=== PATIENT | female | born 1990 | race Caucasian/White ===

== ENCOUNTER 2016-05-18 17:27 | Emergency (ER) | payer SELFPAY ==
[~2016-05-18] VITALS: Ht 157.5 cm; Wt 85.2 kg
--- OUTSIDE RECORDS SUMMARY | 2016-05-18 17:32 | XMS REPORT | Referral Summary ---
Author Author [facility] Organization [facility] Address Unknown Phone Unavailable Care Team Providers Care Blacktop Spreader Name Role Phone Florina Boyd Primary Care Physician [phone] Encounter [facility] [id number] Date(s): 09/10/14 - 09/10/14 [facility] [address] [place] [address] Discharge Diagnosis: Bronchitis Final: BRONCHITIS, NOT SPECIFIED ACUTE OR CHRONIC Discharge Disposition: 01-Home or Self Care Attending Physician: Rubén Dos Santos MD Admitting Physician: Rubén Dos Santos MD Vital Signs Most recent to 1 2 oldest [Reference Range]: Temperature Oral 37.2 degC [35.8-37.3 degC] (09/10/14 12:09 PM) Peripheral Pulse 92 bpm Rate [60-100 bpm] (09/10/14 2:05 PM) Heart Rate Monitored 78 bpm 86 bpm [60-100 bpm] (09/10/14 12:24 PM) (09/10/14 12:24 PM) Respiratory Rate 16 br/min [14-20 br/min] (09/10/14 2:05 PM) Blood Pressure 104/74 mmHg [90-140/60-90 mmHg] (09/10/14 2:05 PM) SpO2 96 % (09/10/14 2:05 PM) Problem List Condition Effective Dates Status Health Status Informant Neck pain(Confirmed) Active Obesity(Confirmed) Active patient Allergies, Adverse Reactions, Alerts No Known Medication Allergies Medications Apri 0.15 mg-0.03 mg oral tablet 1 tabs, Oral, Daily, # 84 tabs, 1 Refill(s), Pharmacy: [facility] [id number] Start Date: 05/06/14 Status: Ordered Ventolin HFA 90 mcg/inh inhalation aerosol 2 puffs, Inhalation, q4hr, as needed for wheezing, # 8 g, 1 Refill(s), Pharmacy : [facility] [id number], 2 puffs Inhalation q4hr,PRN:as needed for wheezing Start Date: 05/06/14 Status: Ordered Zithromax Z-Billy 250 mg oral tablet 1 packets, Oral, Once, as directed on package labeling, # 6 tabs, 0 Refill(s) Start Date: 09/10/14 Status: Ordered Results No data available for this section Immunizations No data available for this section Procedures No data available for this section Social History Social History Type Response Smoking Status Never smoker Assessment and Plan No data available for this section
--- OUTSIDE RECORDS SUMMARY | 2016-05-18 17:32 | XMS REPORT | Referral Summary ---
Author Author [facility] Organization [facility] Address Unknown Phone Unavailable Care Team Providers Care Cardiovascular Invasive Specialist Name Role Phone Florina Boyd Primary Care Physician [phone] Encounter Date(s): 09/04/15 - 09/04/15 [facility] [address], [place] [address] Discharge Disposition: 01-Home or Self Care Attending Physician: Librado Ruth MD Admitting Physician: Librado Ruth MD Referring Physician: Carlos Boyd MD Vital Signs Most recent to 1 oldest [Reference Range]: Apical Heart Rate 74 bpm [60-100 bpm] (09/04/15 12:26 PM) Blood Pressure 111/62 mmHg [90-140/60-90 mmHg] (09/04/15 12:26 PM) Problem List Condition Effective Dates Status Health Status Informant Neck pain(Confirmed) Active Obesity(Confirmed) Active patient Allergies, Adverse Reactions, Alerts No Known Medication Allergies Medications No data available for this section Results No data available for this section Immunizations No data available for this section Procedures No data available for this section Social History Social History Type Response Smoking Status Never smoker Assessment and Plan No data available for this section
--- OUTSIDE RECORDS SUMMARY | 2016-05-18 17:32 | XMS REPORT | Referral Summary ---
Author Author Via [facility] Organization [facility] Address Unknown Phone Unavailable Care Team Providers Care Intensivist Name Role Phone Florina Boyd Primary Care Physician [phone] Encounter [facility] [id number] Date(s): 09/20/15 - 09/20/[address] [facility] [address] [place] [address] [phone] Discharge Disposition: 01-Home or Self Care Attending Physician: Peter Cabrera MD Admitting Physician: Peter Cabrera MD Vital Signs Most recent to 1 oldest [Reference Range]: Temperature Skin 36.4 degC [36-37 degC] (09/20/15 10:30 AM) Peripheral Pulse 62 bpm Rate [60-100 bpm] (09/20/15 1:20 PM) Respiratory Rate 12 br/min [14-20 br/min] *LOW* (09/20/15 10:30 AM) Blood Pressure 105/69 mmHg [90-140/60-90 mmHg] (09/20/15 1:20 PM) SpO2 96 % (09/20/15 10:57 AM) Problem List Condition Effective Dates Status Health Status Informant Headache(Confirmed) Active patient Neck pain(Confirmed) Active Obesity(Confirmed) Active patient Allergies, Adverse Reactions, Alerts No Known Medication Allergies Medications topiramate 25 mg oral tablet 25 mg 1 tabs, Oral, BID, Take 25 mg at bedtime, increase to 25 mg bid in a week for management of headaches, # 60 tabs, 2 Refill(s), Pharmacy: [facility] [id number], 1 tabs Oral BID,Instr:Take 25 mg at bedtime, increase to 25 mg bid in a week for... Start Date: 09/20/15 Status: Ordered Results Hematology Most recent to 1 oldest [Reference Range]: WBC [4.8-10.8 6.7 10*3/uL 10*3/uL] (09/20/15 8:30 AM) RBC [4.00-5.20] 4.33 (09/20/15 8:30 AM) Hgb [12.0-16.0 12.9 gm/dL gm/dL] (09/20/15 8:30 AM) Hct [37.0-47.0 %] 39.2 % (09/20/15:30 AM) MCV [82.0-99.0 fL] 90.5 fL (09/20/15 8:30 AM) MCH [27.0-32.0 pg] 29.8 pg (09/20/15 8:30 AM) MCHC [32.0-36.0 32.9 gm/dL gm/dL] (09/20/15 8:30 AM) RDW [11.5-14.5 %] 12.8 % (09/20/15 8:30 AM) Platelet [150-400 256 10*3/uL 10*3/uL] (09/20/15 8:30 AM) MPV [9.4-12.4 fL] 10.2 fL (09/20/15 8:30 AM) Immature 0.2 % Granulocytes (09/20/15 8:30 AM) [0.0-1.0 %] Neutrophils [51-75 56 % %] (09/20/15 8:30 AM) Lymphocytes [20-46 30 % %] (09/20/15 8:30 AM) Monocytes [4-11 %] 10 % (09/20/15 8:30 AM) Eosinophils [0-4 %] 3 % (09/20/15 8:30 AM) Basophils [0-2 %] 0 % (09/20/15 8:30 AM) Neutro Absolute 3.73 10*3 [1.90-7.00 10*3] (09/20/15 8:30 AM) Lymph Absolute 2.01 10*3 [0.80-3.30 10*3] (09/20/15 8:30 AM) [place] Absolute 0.68 10*3 [0.30-1.00 10*3] (09/20/15 8:30 AM) Eos Absolute 0.21 10*3 [0.00-0.50 10*3] (09/20/15 8:30 AM) Baso Absolute 0.02 10*3 [0.00-0.20 10*3] (09/20/15 8:30 AM) Nucleated RBC 0.0 /100 WBC Automated [0 /100 (09/20/15 8:30 AM) WBC] Coagulation Most recent to 1 oldest [Reference Range]: INR [0.9-1.2] 1.1 (09/20/15 8:30 AM) PTT [25.0-35.0 32.3 seconds seconds] (09/20/15 8:30 AM) Microbiology Reports TEST: Cerebrospinal Fluid Culture and Smear STATUS: Order in Progress BODY SITE: SOURCE: Cerebrospinal Fluid COLLECTED DATE/TIME: 09/20/15 10:10 AM Gram Smear No white blood cells No microorganisms observed OIF=Oil Immersion Field LPF=Low Power Field Immunizations No data available for this section Procedures Procedure Date Related Diagnosis Body Site Spinal puncture, lumbar, diagnostic.. 09/20/15 None Social History Social History Type Response Smoking Status Former smoker Assessment and Plan No data available for this section
--- OUTSIDE RECORDS SUMMARY | 2016-05-18 17:32 | XMS REPORT | Continuity of Care Document ---
Author Author [facility] Organization [facility] Address Unknown Phone Unavailable Allergies Active Description Code Type Severity Reaction Onset Reported/Identified Relationship to Patient Clinical Status Yes No Known Allergies Drug Allergy N/A N/A 04/02/2013 Yes No Known Drug Allergies Drug Allergy N/A N/A 04/02/2013 Yes No Known Food Allergies Food Allergy N/A N/A 04/02/2013 Medications Problems Date Dx Coded Attending Type Code Diagnosis Diagnosed By 04/02/2013 Tyrel Alston MD 723.1 CERVICALGIA 04/02/2013 Tyrel Alston MD Final 847.0 NECK SPRAIN 04/02/2013 Tyrel Alston MD Admitting 959.09 FACE NECK INJURY 04/02/2013 Tyrel Alston MD External E029.9 ACTIVITY NEC 04/02/2013 Tyrel Alston MD External 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 Visit Date/Time Discharge Status Pt. Type Provider Facility Loc./Unit Complaint [id number] 04/02/2013 22:55:00 2013 00:15:00 DIS Emergency Tyrel Alston MD [facility]
--- OUTSIDE RECORDS SUMMARY | 2016-05-18 17:32 | XMS REPORT | Referral Summary ---
Author Author [facility] Organization [facility] Address Unknown Phone Unavailable Care Team Providers Care Yarn Weigher Name Role Phone Florina Boyd Primary Care Physician [phone] Encounter [facility] [id number] Date(s): 09/22/15 - 09/22/15 [facility] [address] [place] [address] Discharge Diagnosis: Low back pain Discharge Disposition: 01-Home or Self Care Attending Physician: Carlos Boyd MD Admitting Physician: Carlos Boyd MD Vital Signs Most recent to 1 oldest [Reference Range]: Peripheral Pulse 78 bpm Rate [60-100 bpm] (09/22/15 3:31 PM) Blood Pressure 122/66 mmHg [90-140/60-90 mmHg] (09/22/15 3:31 PM) SpO2 98 % (09/22/15 3:31 PM) Problem List Condition Effective Dates Status Health Status Informant Headache(Confirmed) Active patient Neck pain(Confirmed) Active Obesity(Confirmed) Active patient Allergies, Adverse Reactions, Alerts No Known Medication Allergies Medications baclofen 20 mg oral tablet 20 mg 1 tabs, Oral, TID, # 42 tabs, 0 Refill(s), Pharmacy: [facility] [id number], 1 tabs Oral TID,x14 days Start Date: 09/22/15 Stop Date: 10/06/15 Status: Ordered Raccoon 5 mg-325 mg oral tablet See Instructions, 1-2 po q 6hrs prn pain, # 30 tabs, 0 Refill(s) Start Date: 09/22/15 Stop Date: 09/23/15 Status: Ordered topiramate 25 mg oral tablet 25 mg 1 tabs, Oral, BID, Take 25 mg at bedtime, increase to 25 mg bid in a week for management of headaches, # 60 tabs, 2 Refill(s), Pharmacy: [facility] [id number], 1 tabs Oral BID,Instr:Take 25 mg at bedtime, increase to 25 mg bid in a week for... Start Date: 09/20/15 Status: Ordered Results No data available for this section Immunizations No data available for this section Procedures Procedure Date Related Diagnosis Body Site None Social History Social History Type Response Smoking Status Former smoker Assessment and Plan Extracted from: Title: Office Visit Note Author: Carlos Boyd MD Date: 09/22/15 Assessment/Plan 1.Low back pain Most likely related to muscle strain and spasm. I reassured her that at this time, I see no indication of a complication from her LP Orders: baclofen, 20 mg 1 tabs, Oral, TID, # 42 tabs, 0 Refill(s), Pharmacy: [facility] [id number], 1 tabs Oral TID,x14 days HYDROcodone-acetaminophen, See Instructions, 1-2 po q 6hrs prn pain, # 30 tabs , 0 Refill(s) A new prescription for Medrol Dosepak, baclofen and Raccoon was provided. Dosage, benefits and side effects were discussed. For details on dosing and instructions, please refer to the medication list. Followup if no improvement. [ ] [ ]
--- OUTSIDE RECORDS SUMMARY | 2016-05-18 17:32 | XMS REPORT | Referral Summary ---
Author Organization Unknown Address Unknown Phone Unavailable Care Team Providers Care Supervisor Soakers Name Role Phone Florina Boyd Primary Care Physician [phone] Encounter [facility] [id number] Date(s): 05/03/14 - 05/03/14 [facility] [place], [facility] Medicine [address] [place], [place] [address] Discharge Diagnosis: Need for tuberculosis vaccination Discharge Disposition: Home or Self Care Attending Physician: Carlos Boyd MD Admitting Physician: Elías Dial MD Vital Signs No data available for this section Problem List Condition Effective Dates Status Health Status Informant Neck pain(Confirmed) Active Allergies, Adverse Reactions, Alerts No Known Medication Allergies Medications No data available for this section Results No data available for this section Immunizations No data available for this section Procedures No data available for this section Social History Social History Type Response Smoking Status Never smoker Assessment and Plan No data available for this section
--- OUTSIDE RECORDS SUMMARY | 2016-05-18 17:32 | XMS REPORT | Referral Summary ---
Author Author [facility] Organization [facility] Address Unknown Phone Unavailable Care Team Providers Care Habilitative Interventionist Name Role Phone Florina Boyd Primary Care Physician [phone] Encounter Date(s): 06/10/15 - 06/10/15 [facility] [address] [place] [address] [facility] Discharge Diagnosis: Acute cystitis Discharge Diagnosis: Pain, chest wall Discharge Diagnosis: Pelvic and perineal pain Discharge Disposition: 01-Home or Self Care Attending Physician: Provider, Immediate Care Attending Physician: Truman Garcia MD Admitting Physician: Provider, Immediate Care Vital Signs Most recent to 1 oldest [Reference Range]: Temperature Oral 36.7 degC [35.8-37.3 degC] (06/10/15 4:21 PM) Peripheral Pulse 83 bpm Rate [60-100 bpm] (06/10/15 4:21 PM) Blood Pressure 130/66 mmHg [90-140/60-90 mmHg] (06/10/15 4:21 PM) SpO2 97 % (06/10/15 4:21 PM) Problem List Condition Effective Dates Status Health Status Informant Neck pain(Confirmed) Active Obesity(Confirmed) Active patient Allergies, Adverse Reactions, Alerts No Known Medication Allergies Medications Apri 0.15 mg-0.03 mg oral tablet 1 tabs, Oral, Daily, # 84 tabs, 1 Refill(s), Pharmacy: [facility] [id number] Start Date: 05/06/14 Status: Ordered Bactrim DS 800 mg-160 mg oral tablet 1 tabs, Oral, BID, # 6 tabs, 0 Refill(s), Pharmacy: [facility] [id number] Start Date: 06/10/15 Status: Ordered Ventolin HFA 90 mcg/inh inhalation aerosol 2 puffs, Inhalation, q4hr, as needed for wheezing, # 8 g, 1 Refill(s), Pharmacy : [facility] [address], 2 puffs Inhalation q4hr,PRN:as needed for wheezing Start Date: 05/06/14 Status: Ordered Zithromax Z-Billy 250 mg oral tablet 1 packets, Oral, Once, as directed on package labeling, # 6 tabs, 0 Refill(s) Start Date: 09/10/14 Status: Ordered Results Hematology Most recent to 1 oldest [Reference Range]: WBC [4.8-10.8 11.6 10*3/uL 10*3/uL] *HI* (06/10/15 5:21 PM) RBC [4.00-5.20] 4.69 (06/10/15 5:21 PM) Hgb [12.0-16.0 13.8 gm/dL gm/dL] (06/10/15 5:21 PM) Hct [37.0-47.0 %] 42.2 % (06/10/15 5:21 PM) MCV [82.0-99.0 fL] 90.0 fL (06/10/15 5:21 PM) MCH [27.0-32.0 pg] 29.4 pg (06/10/15 5:21 PM) MCHC [32.0-36.0 32.7 gm/dL gm/dL] (06/10/15 5:21 PM) RDW [11.5-14.5 %] 12.7 % (06/10/15 5:21 PM) Platelet [150-400 304 10*3/uL 10*3/uL] (06/10/15 5:21 PM) MPV [8.8-14.8 fL] 10.3 fL (06/10/15 5:21 PM) Neutrophils [51-75 68 % %] (06/10/15 5:21 PM) Lymphocytes [20-46 21 % %] (06/10/15 5:21 PM) Monocytes [4-11 %] 10 % (06/10/15 5:21 PM) Eosinophils [0-4 %] 1 % (06/10/15 5:21 PM) Basophils [0-2 %] 0 % (06/10/15 5:21 PM) Neutro Absolute 7.89 10*3 [1.90-7.00 10*3] *HI* (06/10/15 5:21 PM) Lymph Absolute 2.41 10*3 [0.80-3.30 10*3] (06/10/15 5:21 PM) [place] Absolute 1.16 10*3 [0.30-1.00 10*3] *HI* (06/10/15 5:21 PM) Eos Absolute 0.11 10*3 [0.00-0.50 10*3] (06/10/15 5:21 PM) Baso Absolute 0.03 10*3 [0.00-0.20 10*3] (06/10/15 5:21 PM) Immunizations No data available for this section Procedures Procedure Date Related Diagnosis Body Site Collection of venous blood by venipuncture 06/10/15 Social History Social History Type Response Smoking Status Never smoker Assessment and Plan Extracted from: Title: UTI [id number] Author: Truman Garcia MD Date: 06/10/15 Assessment/Plan 1.Pain, chest wall I think this is musculoskeletal and I see nothing to suggestcardiovascularor pulmonary problems otherwise. Continue to follow just use analgesics. 2.Acute cystitis Certainly minimal symptomsand this may be a falsely positive dipstick UA,but I do think it's appropriate to treated as UTIor cystitis. Pelvic pain in female No signs of acute abdominal process orsurgical abdomen. This can be followed. Plan: I will let her go with generic Bactrim DS1 twice a day. 6. Continue with analgesics as needed. Continue with all of her other therapy. Andif she has other problems, she may return or see PCP. Orders: sulfamethoxazole-trimethoprim, 1 tabs, Oral, BID, # 6 tabs, 0 Refill(s ), Pharmacy: [facility] [id number]
--- OUTSIDE RECORDS SUMMARY | 2016-05-18 17:32 | XMS REPORT | Referral Summary ---
Author Author [facility] Organization [facility] Address Unknown Phone Unavailable Care Team Providers Care Wood Stainer Name Role Phone Florina Boyd Primary Care Physician [phone] Encounter [facility] [id number] Date(s): 09/28/15 - 09/28/[address] [facility] [address] [facility] [address] [place], [place] [address] Discharge Disposition: 01-Home or Self Care Attending Physician: Peter Cabrera MD Admitting Physician: Peter Cabrera MD Referring Physician: Peter Cabrera MD Vital Signs No data available for this section Problem List Condition Effective Dates Status Health Status Informant Headache(Confirmed) Active patient Neck pain(Confirmed) Active Obesity(Confirmed) Active patient Allergies, Adverse Reactions, Alerts No Known Medication Allergies Medications baclofen 20 mg oral tablet 20 mg 1 tabs, Oral, TID, # 42 tabs, 0 Refill(s), Pharmacy: [facility] [id number], 1 tabs Oral TID,x14 days Start Date: 09/22/15 Stop Date: 10/06/15 Status: Ordered topiramate 25 mg oral tablet 25 mg 1 tabs, Oral, BID, Take 25 mg at bedtime, increase to 25 mg bid in a week for management of headaches, # 60 tabs, 2 Refill(s), Pharmacy: [facility] [id number], 1 tabs Oral BID,Instr:Take 25 mg at [...]
--- OUTSIDE RECORDS SUMMARY | 2016-05-18 17:32 | XMS REPORT | Referral Summary ---
Author Author [facility] Organization [facility] Address Unknown Phone Unavailable Care Team Providers Care Director Of Agronomy Name Role Phone Florina Boyd Primary Care Physician [phone] Encounter Date(s): 08/25/15 - 08/25/15 [facility] [address] [place], [place] [address] Discharge Diagnosis: Palpitations Discharge Diagnosis: Syncope Discharge Disposition: 01-Home or Self Care Attending Physician: Carlos Boyd MD Admitting Physician: Carlos Boyd MD Vital Signs Most recent to 1 oldest [Reference Range]: Peripheral Pulse 78 bpm Rate [60-100 bpm] (08/25/15 11:19 AM) Blood Pressure 112/64 mmHg [90-140/60-90 mmHg] (08/25/15 11:19 AM) SpO2 97 % (08/25/15 11:19 AM) Problem List Condition Effective Dates Status Health Status Informant Neck pain(Confirmed) Active Obesity(Confirmed) Active patient Allergies, Adverse Reactions, Alerts No Known Medication Allergies Medications No Known Medications Results No data available for this section Immunizations No data available for this section Procedures No data available for this section Social History Social History Type Response Smoking Status Never smoker Assessment and Plan Extracted from: Title: Office Visit Note Author: Carlos Boyd MD Date: 08/25/15 Assessment/Plan 1.Syncope Cause unclear 2.Palpitations Possible seizure activity vscardiac arrhythmia No change in medication at this time I recommend we get her scheduled for an EEG,treadmill test,and referral to neurology for further evaluation.
--- OUTSIDE RECORDS SUMMARY | 2016-05-18 17:32 | XMS REPORT | Referral Summary ---
Author Author [facility] Organization [facility] Address Unknown Phone Unavailable Care Team Providers Care Child Advocate Name Role Phone Deb Florina Primary Care Physician [phone] Encounter Date(s): 09/05/15 - 09/05/[address] [facility] [address] [facility] [address] [place], [place] [address] Discharge Diagnosis: Spells Discharge Diagnosis: Chronic headache Discharge Disposition: 01-Home or Self Care Attending Physician: Peter Cabrera MD Admitting Physician: Peter Cabrera MD Vital Signs Most recent to 1 oldest [Reference Range]: Peripheral Pulse 72 bpm Rate [60-100 bpm] (09/05/15 2:12 PM) Blood Pressure 120/78 mmHg [90-140/60-90 mmHg] (09/05/15 2:12 PM) Problem List Condition Effective Dates Status [...] Extracted from: Title: Office Visit Note Author: Peter Cabrera MD Date: 09/05/15 Assessment/Plan 1.Spells 24 yo F with h/o asthma presents for evaluation of spells. Most recent spell was couple of weeks ago, started feeling nauseated, cold, then lost strength, her witnessed the spells, pt was with eyes closed, able to answer questions, she was "shaky", lasted for about 1 minute, then back to normal. Freq 1 q6-12 months, Only once lost consciousness in 2008. Etiology of spells is unclear, the recent spells that was witnessed by boyfriend did not seem to be seizure related. ? syncope, vasovagal are also in the differential. Plan Will order MRI brain w and w/o and EEG. 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 Pt demonstrated understanding. 2.Chronic headache Examination remarkable for ? papilledema. Will order MRI brain and after MRI brain has been reviewed, will proceed with LP for measurement of opening pressure. May considering starting Topiramate after LP. Pt also recommended to f/u with her eye physician. Time spent with the patient was60 minutes. Greater than 50% of that time was spent counseling the patient, discussing treatment plan and options, answering questions, and follow up plan.
--- OUTSIDE RECORDS SUMMARY | 2016-05-18 17:32 | XMS REPORT | Referral Summary ---
Author Organization Unknown Address Unknown Phone Unavailable Care Team Providers Care President/[employer] Name Role Phone DebFlorina Primary Care Physician [phone] Encounter VC Date(s): 05/06/14 - 05/06/14 [facility], [facility] [address], [place] [address] Discharge Diagnosis: Need for tuberculosis vaccination Discharge Diagnosis: Contraception Discharge Diagnosis: Exercise-induced asthma Discharge Diagnosis: Hip pain Discharge Disposition: Home or Self Care Attending Physician: Ambika Salguero APRN Admitting Physician: Ambika Salguero APRN Vital Signs Most recent to 1 oldest [Reference Range]: Apical Heart Rate 68 bpm [60-100 bpm] (05/06/14 9:36 AM) Blood Pressure 122/72 mmHg [90-140/60-90 mmHg] (05/06/14 9:36 AM) Problem List Condition Effective Dates Status Health Status Informant Neck pain(Confirmed) Active Obesity(Confirmed) Active patient Allergies, Adverse Reactions, Alerts No Known Medication Allergies Medications Apri 0.15 mg-0.03 mg oral tablet 1 tabs, Oral, Daily, # 84 tabs, 1 Refill(s), Pharmacy: [facility] [id number] Start Date: 05/06/14 Status: Ordered Ventolin HFA 90 mcg/inh inhalation aerosol 2 puffs, Inhalation, q4hr, as needed for wheezing, # 8 g, 1 Refill(s), Pharmacy : [facility] [id number], 2 puffs Inhalation q4hr,PRN:as needed for wheezing Start Date: 05/06/14 Status: Ordered Results No data available for this section Immunizations No data available for this section Procedures No data available for this section Social History Social History Type Response Smoking Status Never smoker Assessment and Plan Extracted from: Title: Office Visit Note Author: Ambika Salguero APRN Date: 05/06/14 Assessment/Plan 1.Exercise-induced asthma albuterol prn. If she needs albuterol frequently, we will see her back. Ordered: Office Visit Level 2 Est 36040 2.Contraception She will start o.c. the 5th day of her next period. Discussed prevention of STD's. She will come back her or go to the health department in 3 months for a CPE and pap. Ordered: Office Visit Level 2 Est 60114 3.Hip pain She will take ASA once a day and also take ibuprofen if needed for pain. If this doesn't improve, we can see her again. Need for tuberculosis vaccination Orders: albuterol, 2 puffs, Inhalation, q4hr, as needed for wheezing, # 8 g, 1 Refill(s), Pharmacy: [facility] [id number], 2 puffs Inhalation q4hr,PRN: as needed for wheezing desogestrel-ethinyl estradiol, 1 tabs, Oral, Daily, # 84 tabs, 1 Refill(s), Pharmacy: [facility] [id number]
--- OUTSIDE RECORDS SUMMARY | 2016-05-18 17:32 | XMS REPORT | Referral Summary ---
Author Author [facility] Organization [facility] Address Unknown Phone Unavailable Care Team Providers Care Air Cargo Specialist Name Role Phone Florina Boyd Primary Care Physician [phone] Encounter [facility] [id number] Date(s): 07/31/15 - 08/01/15 [facility] [address] [place] [address] Discharge Diagnosis: Acute UTI Discharge Disposition: 01-Home or Self Care Attending Physician: Campos Lane MD Admitting Physician: Campos Lane MD Vital Signs Most recent to 1 oldest [Reference Range]: Temperature Oral 36.6 degC [35.8-37.3 degC] (07/31/15 10:59 PM) Peripheral Pulse 80 bpm Rate [60-100 bpm] (07/31/15 10:59 PM) Heart Rate Monitored 83 bpm [60-100 bpm] (08/01/15 2:22 AM) Respiratory Rate 18 br/min [14-20 br/min] (08/01/15 2:22 AM) Blood Pressure 106/69 mmHg [90-140/60-90 mmHg] (08/01/15 2:22 AM) SpO2 95 % (08/01/15 2:22 AM) Problem List Condition Effective Dates Status Health Status Informant Neck pain(Confirmed) Active Obesity(Confirmed) Active patient Allergies, Adverse Reactions, Alerts No Known Medication Allergies Medications Apri 0.15 mg-0.03 mg oral tablet 1 tabs, Oral, Daily, # 84 tabs, 1 Refill(s), Pharmacy: [facility] [id number] Start Date: 05/06/14 Status: Ordered Bactrim DS 800 mg-160 mg oral tablet 1 tabs, Oral, BID, # 6 tabs, 0 Refill(s), Pharmacy: [facility] [id number] Start Date: 06/10/15 Status: Ordered Keflex 500 mg oral capsule 500 mg 1 caps, Oral, TID, X 10 days, # 30 caps, 0 Refill(s) Start Date: 08/01/15 Stop Date: 08/11/15 Status: Ordered meclizine 25 mg oral tablet 25 mg 1 tabs, Oral, TID, as needed for dizziness, # 30 tabs, 0 Refill(s) Start Date: 08/01/15 Stop Date: 07/31/16 Status: Ordered Ventolin HFA 90 mcg/inh inhalation aerosol 2 puffs, Inhalation, q4hr, as needed for wheezing, # 8 g, 1 Refill(s), Pharmacy : [facility] [id number], 2 puffs Inhalation q4hr,PRN:as needed for wheezing Start Date: 05/06/14 Status: Ordered Zithromax Z-Billy 250 mg oral tablet 1 packets, Oral, Once, as directed on package labeling, # 6 tabs, 0 Refill(s) Start Date: 09/10/14 Status: Ordered Results Chemistry Most recent to 1 oldest [Reference Range]: Sodium Venous 142 mEq/L [136-144 mEq/L] (08/01/15 1:35 AM) Potassium Venous 3.8 mEq/L 1 [3.6-5.1 mEq/L] (08/01/15 1:35 AM) Calcium Ionized 1.26 mmol/L Venous [1.19-1.41 (08/01/15 1:35 AM) mmol/L] Total CO2 Venous 22 mEq/L [25-29 mEq/L] *LOW* (08/01/15 1:35 AM) HGB Venous NPT 13.3 gm/dL [12.0-16.0 gm/dL] (08/01/15 1:35 AM) HCT Venous 39.0 % [37.0-47.0 %] (08/01/15 1:35 AM) Glucose Venous 85 mg/dL [70-100 mg/dL] (08/01/15 1:35 AM) BUN Venous [4-20] 17 (08/01/15 1:35 AM) Creatinine Venous 0.9 mg/dL [0.4-1.0 mg/dL] (08/01/15 1:35 AM) Venous CL [99-109 107 mEq/L mEq/L] (08/01/15 1:35 AM) Anion Gap, Wade 13 [3-20] (08/01/15 1:35 AM) Beta hCG Ql Negative (08/01/15 1:36 AM) 1Result Comment: This test was performed on a whole blood specimen. The presence or absence of hemolysis cannot be assessed. Hemolysis can falsely elevate potassium levels. Normals are for venous specimens only. Urinalysis Most recent to 1 oldest [Reference Range]: UA Color Yellow (08/01/15 1:36 AM) UA Appear Sl Cloudy (08/01/15 1:36 AM) UA pH [5.0-8.0] 5.0 (08/01/15 1:36 AM) UA Leuk Est Pos 3+ [Negative] *ABN* (08/01/15 1:36 AM) UA Nitrite Negative [Negative] (08/01/15 1:36 AM) UA Protein Negative [Negative] (08/01/15 1:36 AM) UA Glucose Negative [Negative] (08/01/15 1:36 AM) UA Ketones Negative [Negative] (08/01/15 1:36 AM) UA Urobilinogen Negative [<1.0] (08/01/15 1:36 AM) UA Bili [Negative] Negative (08/01/15 1:36 AM) UA Blood [Negative] Negative (08/01/15 1:36 AM) UA Spec Grav 1.025 [1.003-1.030] (08/01/15 1:36 AM) Type Clean Catch (08/01/15 1:36 AM) UA WBC [0-4] 10-20 *ABN* (08/01/15 1:36 AM) UA RBC [0-2] 2-5 (08/01/15 1:36 AM) Epithelial Cells 2-5 (08/01/15 1:36 AM) UA Bacteria None Seen (08/01/15 1:36 AM) UA Mucous Present (08/01/15 1:36 AM) Immunizations No data available for this section Procedures No data available for this section Social History Social History Type Response Smoking Status Never smoker Assessment and Plan No data available for this section
[2016-05-18 17:55] VITALS: TEMP 97.9; Ht 157.5 cm; Wt 85.2 kg
--- NOTE | 2016-05-18 18:08 | ERPDOC ---
Departure Disposition Decision Date: May 18, 2016 Disposition Decision Time: 20:37 Disposition: 01 DISCHARGED HOME, SELF-CARE Impression Impression Impression: Primary Impression: Urinary tract infection Urinary tract infection type: acute cystitis Hematuria presence: with hematuria Qualified Codes: N30.01 - Acute cystitis with hematuria Severity: Moderate Condition: Stable Seen By: Physician only Patient Instructions: Urinary Tract Infection in Women (ED) Problems/Meds/Labs Reviewed?: Yes Medications reviewed and manag: Yes Additional Instructions: Establish herself with a primary medical physician for further evaluation Follow up care ordered?: Yes Mental Status: Alert, Oriented Scripts Ciprofloxacin HCl (Ciprofloxacin HCl) 500 Mg Tablet 500 MG PO BID for 7 Days, 0 Refills Prov: SHANDRA CASTELLANOS MD 05/18/16 HPI - Abdominal Pain General Chief Complaint: Abdominal Pain Stated Complaint: ABD & STOMACH PAINS Time Seen by Provider: 18:08 Source: patient, family History/Exam Limitations: no limitations HPI - Abdominal Pain Initial Comments Patient is a 25-year-old female presents emergency room for evaluation of epigastric abdominal pain, and left lower quadrant abdominal pain. Patient's had the symptoms intermittently for a month, getting worse, patient's had no fevers no chills still eating well still drinking well last bowel movement this morning "normal". Patient is also concerned because it's been 6 weeks since her last menstrual period, is possible she might be has taken a negative home test 3 weeks ago. Patient here for evaluation and treatment Occurred At: home Onset: Gradual, Changing over time Duration: other (one month) Pain Scale: Now & Worst: 9/10 Quality: sharpness Location: LLQ Allergies: Coded Allergies: No Known Allergies (Unverified , 05/18/16) Past History Past Medical History Pt denies signifigant PMH Surgical History Denies Surgeries Family History Family PMH: FOUND: other (kidney stones) Social History Smoking Status: Former smoker Substance Use Type: does not use Alcohol Intake: occasionally Review of Systems Constitutional Constitutional: appetite decrease, DENIES: chills, dizziness, fever, weakness Eyes Vision: DENIES: double vision, loss of visual armenta ENMT Sinuses: DENIES: congestion, rhinorrhea Mouth/Throat: DENIES: scratchy throat, sore throat Cardiovascular Cardiac: DENIES: chest pain, dyspnea on exertion GI Upper Abdomen: heartburn/indigestion, nausea, pain, DENIES: vomiting Lower Abdomen: pain, DENIES: constipation, diarrhea General: DENIES: burning, frequency, pain, urgency Musculoskeletal General: DENIES: cramps, pain, weakness Integumentary Skin: DENIES: color change, itching, rash Endocrine Endocrine: DENIES: heat/cold intolerance Physical Exam General General Nourishment: well nourished, well developed, obese General Body Habitus: well groomed Vitals and Pain First Documented Vital Signs Date Time Temp Pulse Resp B/P Pulse Ox O2 Delivery O2 Flow Rate FiO2 05/18/16 17:55 97.9 78 14 116/63 97 Room Air Weight: Kilograms: 85.200 Height (feet): 5 Height (inches): 2.00 Triage Pain Scale: RN VS reviewed by Provider: Yes Eyes (brief) Eyes Brief: found: EOMI ENMT (brief) ENMT Brief: FOUND: mucosa moist, normal dentition, NOT FOUND: nasal erythema, pharnyx erythema, tonsillar deviation Neck (brief) Neck: NOT FOUND: adenopathy, spasm, tenderness Respiratory (brief) Respiratory: FOUND: clear all armenta, equal bilaterally, NOT FOUND: rales, wheezes Cardiovascular (brief) Cardiac: FOUND: regular rate, regular rhythm Capillary Refill: <2 sec Pulses: all distal extremities Abdomen Palpation: FOUND: soft, tender (mild epigastric tenderness and left lower quadrant abdominal pain/tenderness), NOT FOUND: Obturator sign, Psoas sign, hepatomegaly, splenomegaly, voluntary guarding Auscultation: FOUND: normoactive Lymphatic (brief) Lymphatic Brief: NOT FOUND: adenopathy Musculoskeletal (brief) Musculoskeletal Brief: NOT FOUND: spasm, tenderness Integumentary (brief) Integumentary Brief: FOUND: dry, pink, warm, NOT FOUND: rash Neurologic (brief) Neurological Brief: FOUND: CN w/o gross def to obs, motor-no gross deficits, sensory-no gross deficits Psychiatric (brief) Psychiatric Brief: FOUND: alert, oriented Differential Diagnoses Considering: Appendicitis, Biliary Colic, Bowel Obstruction, Cholecystitis, Constipation, Ectopic , Gastroenteritis, GI Bleed, Hepatitis, IBS, Ileus, Pancreatitis, Pyelonephritis, Renal Colic, Ulcer, Ulcerative Colitis, UTI , Volvulus Progress Results/Orders Orders Procedure Category Date Status Time Iv Lock (Ed Only) EDM 05/18/16 Transmitted 18:13 Cbc W/Auto LAB 05/18/16 Complete Diff-Reflex Manual 18:13 Cmp - Comprehensive LAB 05/18/16 Complete Metabolic 18:13 Lipase LAB 05/18/16 Complete 18:13 LAB 05/18/16 Complete Qualitative, Urine 18:13 Normal Saline (Normal PHA 05/18/16 Complete Saline Iv) 18:15 G.I. Cocktail PHA 05/18/16 Complete (/Maalox/Lidocaine 18:15 Pantoprazole PHA 05/18/16 Complete (Protonix Iv) 18:15 UA, LAB 05/18/16 Complete Dip&Micro(Complete) & 18:52 Urine Culture MATY 05/18/16 In Process 19:23 Ct Renal W/O Contrast CT 05/18/16 Taken 19:42 Ciprofloxacin (Cipro) PHA 05/18/16 Complete 20:45 Lab Results Laboratory Tests Test 05/18/16 18:49 05/18/16 18:52 White Blood Count 11.3T/MM3 Red Blood Count 4.39M/MM3 Hemoglobin 13.0GM/DL Hematocrit 39.9% Mean Corpuscular Volume 90.9UM3 Mean Corpuscular Hemoglobin 29.6UUG Mean Corpuscular Hemoglobin Concent 32.6GM/DL RDW Standard Deviation 43.0FL Platelet Count 285T/MM3 Mean Platelet Volume 10.1UM3 Immature Granulocyte % (Auto) 0.1% Neutrophils (%) (Auto) 62.6% Lymphocytes (%) (Auto) 24.9% Monocytes (%) (Auto) 7.9% Eosinophils (%) (Auto) 4.1% Basophils (%) (Auto) 0.4% Absolute Immature Granulocyte (auto 0.01T/MM3 Absolute Neutrophils (auto) 7.1T/MM3 Absolute Lymphocytes (auto) 2.8T/MM3 Absolute Monocytes (auto) 0.9T/MM3 Absolute Eosinophils (auto) 0.5T/MM3 Absolute Basophils (auto) 0.1T/MM3 Turbidity < 20 Sodium Level 145MEQ/L Potassium Level 4.1MEQ/L Chloride Level 109MEQ/L Carbon Dioxide Level 24MEQ/L Anion Gap 12MEQ/L Blood Urea Nitrogen 16.0MG/DL Creatinine 0.6MG/DL Glomerular Filtration Rate Calc 122 BUN/Creatinine Ratio 27RATIO Glucose Level 104MG/DL Calculated Osmolality 280MOSM/KG Calcium Level 8.9MG/DL Total Bilirubin 0.40MG/DL Icterus Index < 2 Aspartate Amino Transf (AST/SGOT) 17U/L Alanine Aminotransferase (ALT/SGPT) 35U/L Alkaline Phosphatase 51U/L Total Protein 7.1G/DL Albumin 3.8G/DL Globulin 3.3G/DL Albumin/Globulin Ratio 1.2RATIO Lipase 80U/L Chemistry Specimen Hemolysis < 15 Urine Collection Type Voided-not cc-midstr Urine Color [place] Urine Turbidity Sl cloudy Urine pH 5.0 Urine Specific [place] >=1.030 Urine Protein 1+ Urine Glucose (UA) Negative Urine Ketones Negative Urine Blood 3+ Urine Nitrite Negative Urine Bilirubin Negative Urine Urobilinogen 1.0EU/DL Urine Leukocyte Esterase Negative Urine RBC 50-200/HPF Urine WBC 10-20/HPF Urine Bacteria 2+ Urine Culture Indicated Cult reflexed &setup Urine Test Negative Medications Current ED Medications Sodium Chloride (Normal Saline IV) 1,000 ml @ 999 mls/hr Q1H1M ONCE IV Last administered on 05/18/16 19:03; Start 05/18/16 at 18:15; Stop 05/18/16 at 19:15 ; Status DC Pharmacy Profile Note (/Maalox/ Lidocaine Soln) 30 ml O ONCE PO Last administered on 05/18/16 18:56; Start 05/18/16 at 18:15; Stop 05/18/16 at 18:16 ; Status DC Pantoprazole Sodium (Protonix Iv) 40 mg O ONCE IV Last administered on 19:03; Start 05/18/16 at 18:15; Stop 05/18/16 at 18:16; Status DC Ciprofloxacin (Cipro) 500 mg O ONCE PO Last administered on 05/18/16 21:11; Start 05/18/16 at 20:45; Stop 05/18/16 at 20:46; Status DC Progress Progress Patient with significant blood in your urine no sign of kidney stones, we'll discharge patient home UTI, treat with Cipro twice a day 7 days patient is to follow-up with PCP established. CT CT : CT: Abd/Pelvis IV contrast Interpretation: Normal, Faxed Report (mild constipation) SHANDRA CASTELLANOS MD May 18, 2016 18:08
--- OUTSIDE RECORDS SUMMARY | 2016-05-18 18:13 | XMS REPORT | Continuity of Care Document ---
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 Visit Date/Time Discharge Status Pt. Type Provider Facility Loc./Unit Complaint [id number] 04/02/2013 22:55:00 2013 00:15:00 DIS Emergency Tyrel Alston MD [facility]
[2016-05-18] MEDS ORDERED: NORMAL SALINE 1,000 ML IV ONE (18:15)
[2016-05-18] MEDS ORDERED: PANTOPRAZOLE 40mg INJECTION IV ONE (18:15)
[2016-05-18] MEDS ORDERED: G.I. COCKTAIL 30ml PO ONE (18:15)
[2016-05-18] MEDS ORDERED: NO ROUTINE MEDS (18:22)
[2016-05-18 18:58] LABS: BASOPHILS # (AUTO) 0.1 T/MM3 (0-0.2); BASOPHILS % (AUTO) 0.4 % (0-2); EOSINOPHILS # (AUTO) 0.5 T/MM3 (0-0.5); EOSINOPHILS % (AUTO) 4.1 % (0-4); HCT - HEMATOCRIT 39.9 % (36-46); IMMATURE GRANULOCYTE # (AUTO) 0.01 T/MM3 (0.00-0.03); IMMATURE GRANULOCYTE % (AUTO) 0.1 % (0.0-0.5); LYMPHOCYTES # (AUTO) 2.8 T/MM3 (1-4.8); LYMPHOCYTES % (AUTO) 24.9 % (23-45); MEAN CORPUSCULAR HGB 29.6 UUG (26-34); MEAN CORPUSCULAR HGB CONC(MCHC 32.6 GM/DL (31-37); MEAN CORPUSCULAR VOLUME 90.9 UM3 (80-100); MEAN PLATELET VOLUME 10.1 UM3 (9.4-12.4); MONOCYTES # (AUTO) 0.9 T/MM3 (0-0.8); MONOCYTES % (AUTO) 7.9 % (0-9.0); NEUTROPHILS #(AUTO)-ABSOLUTE 7.1 T/MM3 (1.8-7.7); NEUTROPHILS % (AUTO) 62.6 % (33-66); RED BLOOD COUNT 4.39 M/MM3 (4.00-5.20); WBC - WHITE BLOOD COUNT 11.3 T/MM3 (4.5-11.0)
[2016-05-18 19:00] LABS: BLOOD, URINE 3+ (NEGATIVE); COLOR,URINE ORANGE (YELLOW); LEUKOCYTE ESTERASE ,URINE NEGATIVE (NEGATIVE); NITRITE,URINE NEGATIVE (NEGATIVE)
[2016-05-18 19:07] LABS: ALBUMIN 3.8 G/DL (3.5-5.0); ALBUMIN/GLOBULIN RATIO 1.2 RATIO (1.1-2.2); ALKALINE PHOSPHATASE 51 U/L (38-126); ALT (SGPT) 35 U/L (9-52); ANION GAP 12 MEQ/L (5-15); AST (SGOT) 17 U/L (14-36); BUN/CREATININE RATIO 27 RATIO (6-26); CALCIUM 8.9 MG/DL (8.4-10.2); CHLORIDE 109 MEQ/L (98-107); CO2 - CARBON DIOXIDE 24 MEQ/L (22-30); CREATININE 0.6 MG/DL (0.7-1.2); GLOMERULAR FILTRATION RATE 122; GLUCOSE 104 MG/DL (65-110); LIPASE 80 U/L (23-300); POTASSIUM 4.1 MEQ/L (3.6-5); SODIUM 145 MEQ/L (134-144); TOTAL PROTEIN 7.1 G/DL (6.3-8.2)
[2016-05-18 19:21] LABS: RBC,URINE 50-200 /HPF (0-3)
[2016-05-18 19:22] LABS: BACTERIA,URINE 2+ (NEGATIVE)
[2016-05-18] MEDS ORDERED: CIPR-280 PO (20:38)
[2016-05-18] MEDS ORDERED: CIPROFLOXACIN 500 MG TABLET PO ONE (20:45)
[2016-05-18 21:18] VITALS: BP 121/69; PULSE 79; RESP 16; O2SAT 98
--- NOTE | 2016-05-19 08:38 | DI ---
Indication: ITS.REASON: left flank pain, rule out stone PROCEDURE: CT RENAL W/O CONTRAST: Encounter: Initial Comparison: None Technique: Axial CT images were performed through the abdomen and pelvis without intravenous contrast. Coronal and sagittal two-dimensional reformats. Automated Exposure Control and Iterative Reconstruction dose reducing techniques were utilized. Findings: The lung bases are clear. The unenhanced contours of the liver, gallbladder, spleen, pancreas and adrenal glands are within normal limits. Kidneys are normal. No ureteral stones. Ureters are difficult to follow in their entirety. Bladder is normal. Uterus and ovaries are normal. No free fluid. No evidence of a bowel obstruction. The appendix is normal. Bone windows are normal in appearance. Impression: No acute disease process seen. There is a preliminary report by [employer]. .
== END 2016-05-18 21:18 | disposition home or self-care (01) ==
LOC: ED 17:27
DX: N30.01 Acute cystitis with hematuria (principal)
CPT/HCPCS: 36415; 80053; 81001; 81025; 83690; 85025; 87086